=== PATIENT | female | born 1980 | race Caucasian/White ===

== ENCOUNTER 2020-05-21 22:29 | Observation (INO) | payer OTHER ==
[2020-05-21 23:33] LABS: BASO % 0.6 % (0-2.0); EOS % 2.5 % (0-4.5); HEMATOCRIT 36.1 % (32.4-45.2); LYMPH % 31.8 % (8-40); MCH 29.7 pg (25.7-33.7); MCHC 33.1 g/dl (32.0-36.0); MEAN CELL VOLUME 89.5 fl (80-96); MEAN PLT VOLUME 9.7 fl (7.5-11.1); MONO % 7.2 % (3.8-10.2); NEUT % 57.9 % (42.8-82.8); PLATELET COUNT 227 K/MM3 (134-434); RBC 4.03 M/mm3 (3.60-5.2); RDW 13.5 % (11.6-15.6)
[2020-05-21 23:48] LABS: PROTHROMBIN TIME (PATIENT) 11.8 SEC (9.7-13.0)
[2020-05-21 23:50] LABS: ACTIVATED PTT 33.2 SECONDS (25.2-36.5)
[2020-05-22 00:02] LABS: ALBUMIN 3.9 g/dl (3.4-5.0); ALK PHOS 55 U/L (45-117); ANION GAP 7 MMOL/L (8-16); BILIRUBIN,TOTAL 0.5 mg/dL (0.2-1); BLOOD UREA NITROGEN 14.8 mg/dL (7-18); CALCIUM 9.1 mg/dL (8.5-10.1); CHLORIDE 107 mmol/L (98-107); CO2 26 mmol/L (21-32); CREATININE 0.7 mg/dL (0.55-1.3); GLUCOSE,RANDOM 91 mg/dL (74-106); PHOSPHOROUS 4.3 mg/dL (2.5-4.9); POTASSIUM 3.9 mmol/L (3.5-5.1); SGOT/AST 17 U/L (15-37); SGPT/ALT 21 U/L (13-61); SODIUM 140 mmol/L (136-145); TOT PROT 7.2 g/dl (6.4-8.2)
[2020-05-22 01:20] LABS: MAGNESIUM 2.4 mg/dL (1.8-2.4)
[2020-05-22 04:26] VITALS: BMI 21.4
[2020-05-22 11:55] VITALS: BP 120/76; PULSE 81; TEMP 98.9
== END 2020-05-22 12:23 | disposition home or self-care (01) ==
LOC: JER 22:29 → INTOOBSV 05-22 01:22 → JERBED 05-22 01:22 → J6S 05-22 03:43
PROVIDERS: ADMIT Internal Medicine; ATTEND Internal Medicine
DX: R20.0 Anesthesia of skin (principal); R20.2 Paresthesia of skin; G50.0 Trigeminal neuralgia; F41.9 Anxiety disorder, unspecified
CPT/HCPCS: 36415; 70450-TC; 70553-TC; 80053; 82550; 82553; 83735; 84100; 84443; 84484; 84703; 85025; 85610; 85730; 93005; 93010; 99285-25; A9579; G0378; U0003